=== PATIENT | male | born 1995 | race African-American/Black ===

== ENCOUNTER 2021-10-22 15:05 | Emergency (ER) | payer MEDICAID ==
[~2021-10-22] VITALS: Ht 172.7 cm; Wt 82.0 kg
[2021-10-22 15:32] VITALS: BP 117/75
[2021-10-22 18:06] LABS: CLARITY URINE CLEAR (CLEAR); COLOR URINE YELLOW (YELLOW); KETONES URINE NEGATIVE (NEGATIVE); LEUKOCYTE ESTERASE URINE NEGATIVE (NEGATIVE); NITRITE URINE NEGATIVE (NEGATIVE); OCCULT BLOOD URINE 1+ (NEGATIVE); PROTEIN URINE NEGATIVE (NEGATIVE); UROBILINOGEN URINE 0.2 E.U./dL (0.2-1.0)
[2021-10-22] MEDS ORDERED: LIDOCAINE HCL 1% 20ML VIAL (Pyxis) INJ INFIL ONE (19:15)
[2021-10-22] MEDS ORDERED: CEFTRIAXONE SODIUM 500 MG/VIAL IM ONE (19:15)
[2021-10-22] MEDS ORDERED: DOXY100T28 PO (19:17)
[2021-10-22] MEDS ORDERED: ACET-2708 PO (19:17)
[2021-10-26 04:07] LABS: NEISSERIA GONORRHOEAE NAA Negative (Negative)
== END 2021-10-22 19:32 | disposition home or self-care (01) ==
LOC: ER 15:05
DX: N34.2 Other urethritis (principal); N45.1 Epididymitis
CPT/HCPCS: 76870; 81003; 87491; 87591; 93976; 96372; 99284; J0696; J3490